=== PATIENT | female | born 1995 | race Two or more races ===

== ENCOUNTER 2017-02-03 02:43 | Inpatient (IN) | payer OTHER ==
[~2017-02-03] VITALS: Ht 170.2 cm; Wt 66.4 kg
[2017-02-03 02:40] VITALS: BP 134/70
[~2017-02-03 02:43] MED LIST: FERR324T8 PO; IBUP-1222 PO; OXYC-302 PO; SENN-87 PO
[2017-02-03] MEDS ORDERED: LACTATED RINGERS 1,000 ML IV SCH (02:54)
[2017-02-03] MEDS ORDERED: D5%-LACTATED RINGERS 1,000 ML IV SCH (02:54)
[2017-02-03] MEDS ORDERED: OXYTOCIN 30U/ 0.9% NaCL 500ML 500 ML IV ONE (02:54)
[2017-02-03] MEDS ORDERED: OXYTOCIN 30U/ 0.9% NaCL 500ML 500 ML ONE ×2 (02:58→04:54)
[2017-02-03] MEDS ORDERED: NEWBORN KIT ONE (02:58)
[2017-02-03] MEDS ORDERED: ONDANSETRON 2MG/ML, 2ML IVPush PRN (03:00)
[2017-02-03] MEDS ORDERED: SODIUM CITRATE/CITRIC ACID 30 ML UDC PO PRN (03:00)
[2017-02-03] MEDS ORDERED: FENTANYL PF 100 MCG/2ML IV PRN (03:00)
[2017-02-03] MEDS ORDERED: FENTANYL PF 100 MCG/2ML IVPush PRN (03:00)
[2017-02-03] MEDS ORDERED: METOCLOPRAMIDE 5 MG/ML, 2ML IVPush PRN (03:00)
[2017-02-03] MEDS ORDERED: OXYTOCIN 30U/ 0.9% NaCL 500ML 500 ML IV SCH (03:50)
[2017-02-03] MEDS ORDERED: MISOPROSTOL 200 MCG TABLET PR PRN (04:00)
[2017-02-03] MEDS ORDERED: METHYLERGONOVINE 0.2 MG/ML IM PRN (04:00)
[2017-02-03] MEDS ORDERED: IBUPROFEN 800 MG TABLET PO PRN (04:00)
[2017-02-03] MEDS ORDERED: OXYcodone/APAP 5/325MG TABLET PO PRN ×2 (04:00)
[2017-02-03] MEDS ORDERED: ACETAMINOPHEN 325 MG TABLET PO PRN (04:00)
[2017-02-03] MEDS ORDERED: CARBOPROST TROMETHAMINE 250 MCG/ML, 1ML IM PRN (04:00)
[2017-02-03] MEDS ORDERED: PLEASE ENTER HEIGHT AND WEIGHT MC SCH (04:00)
[2017-02-03] MEDS ORDERED: BISACODYL 10 MG SUPP PR PRN (04:00)
[2017-02-03] MEDS ORDERED: GLYCERIN ADULT SUPP PR PRN (04:00)
[2017-02-03 05:30] VITALS: BP 115/69
[2017-02-03 05:46] LABS: HEMATOCRIT 30.8 % (34.6-47.8); HEMOGLOBIN 9.6 g/dL (11.7-16.4); WHITE BLOOD COUNT 13.1 x10^3/uL (3.4-10)
[2017-02-03 08:00] VITALS: BP 117/66
[2017-02-03] MEDS: DOCUSATE 100 MG CAPSULE PO PRN (10:28)
[2017-02-03] MEDS: PRENATAL VIT/IRON/FA 1 EACH TABLET PO SCH (10:28)
[2017-02-03 11:52] LABS: HEMATOCRIT 28.4 % (34.6-47.8); WHITE BLOOD COUNT 10.7 x10^3/uL (3.4-10)
[2017-02-03 12:11] LABS: ANISOCYTOSIS 2+; MICROCYTOSIS 3+; OVALOCYTES 2+; SCHISTOCYTES 1+
[2017-02-03 12:13] LABS: ECHINOCYTES 1+
[2017-02-03 12:15] LABS: HYPOCHROMIA 1+; POLYCHROMASIA 1+
[2017-02-03] MEDS ORDERED: MEASLES,MUMPS&RUBELLA VACC/PF 0.5 ML SQ-VACC ONE (12:54)
[2017-02-03] MEDS ORDERED: FLU VACC QS2017-18 (36MOS+) UP/PF 0.5 ML IM-VACC ONE (12:54)
[2017-02-03] MEDS: IBUPROFEN 600 MG TABLET PO PRN (17:06)
[2017-02-03 20:30] VITALS: BP 111/76
[2017-02-04 07:45] VITALS: BP 114/77
[2017-02-04] MEDS: IBUPROFEN 600 MG TABLET PO PRN ×2 (07:48→17:33)
[2017-02-04] MEDS: PRENATAL VIT/IRON/FA 1 EACH TABLET PO SCH (07:48)
[2017-02-04] MEDS: DOCUSATE 100 MG CAPSULE PO PRN ×2 (07:48→19:07)
[2017-02-04] MEDS ORDERED: OXYC-302 PO (11:04)
[2017-02-04] MEDS ORDERED: IBUP-1222 PO (11:04)
[2017-02-04] MEDS ORDERED: FERR325T5 PO (11:07)
[2017-02-04 19:15] VITALS: BP 107/72
[2017-02-05 03:17] VITALS: BP 99/59
[2017-02-05 07:40] VITALS: BP 112/69
== END 2017-02-05 11:20 | disposition home or self-care (01) | DRG 775 ==
LOC: LDOP 02:43 → LDIP 02:46 → 2NW 05:00
PROVIDERS: ADMIT Student in an Organized Health Care Education/Training Program; ATTEND Student in an Organized Health Care Education/Training Program
PROC: 10E0XZZ Delivery of Products of Conception, External Approach (ICD-10-PCS; principal; 2017-02-03)
PROC: 0KQM0ZZ Repair Perineum Muscle, Open Approach (ICD-10-PCS; 2017-02-03)
PROC: 10907ZC Drainage of Amniotic Fluid, Therapeutic from Products of Conception, Via Natural or Artificial Opening (ICD-10-PCS; 2017-02-03)
DX: O70.1 Second degree perineal laceration during delivery (principal); O71.3 Obstetric laceration of cervix; Z23 Encounter for immunization; Z3A.39 39 weeks gestation of pregnancy; Z37.0 Single live birth
CPT/HCPCS: 36415; 85025; 86850; 86900; J2590; J7120